=== PATIENT | male | born 2005 | race Two or more races ===

== ENCOUNTER 2024-02-28 13:44 | Emergency (ER) | payer SELFPAY ==
[2024-02-28] MEDS: Lidocaine 1% with EPINEPHrine 1:100,000 20 ML MDV INJECT ONE (14:54)
[2024-02-28] MEDS: Bacitracin Oint 1 GM U/D Packet TOP ONE (14:54)
[2024-02-28] MEDS: Lidocaine/Epineph/Tetracaine 3 ML Syringe TOP ONE (14:54)
== END 2024-02-28 16:52 | disposition home or self-care (01) ==
LOC: JP.ED 13:44
DX: S91.311A Laceration without foreign body, right foot, initial encounter (principal); X58.XXXA Exposure to other specified factors, initial encounter
CPT/HCPCS: 12002; 99282; A9270